=== PATIENT | male | born 1950 | race Caucasian/White ===

== ENCOUNTER 2020-08-24 13:40 | Outpatient (RCR) | payer OTHER, SELFPAY ==
[2020-08-18 08:48] LABS: Abs Immature Grans 0.05 10^3/uL (0.0-0.06); Absolute Eosinophil Count 0.24 10^3/uL (0.0-0.7); Absolute Lymphocyte Count 2.45 10^3/uL (1.2-3.4); Absolute Monocyte Count 0.68 10^3/uL (0.1-0.8); Absolute Neutrophil Count 3.87 10^3/uL (1.2-6.7); Basophils % 1.4; Eosinophils % 3.2; HCT 41.2 % (40.0-50.0); HGB 14.2 g/dL (13.5-17.5); Immature Grans % 0.7; Lymphocytes % 33.2; MCH 30.7 pg (27.0-33.0); MCHC 34.5 % (32.0-36.0); MPV 11.6 fL (8.0-11.0); Monocytes % 9.2; Neutrophils % 52.3; Nucleated RBC 0 %; Platelet Count 231 10^3/uL (130-400); RBC 4.63 10^6/uL (4.36-5.78); RDW 15.7 % (11.8-14.1); RDW-SD 51.3 fL; WBC 7.39 10^3/uL (4.4-10.8)
[2020-08-18] MEDS: Normal Saline Flush 10 ML SYR IVP (08:51)
[2020-08-18 09:02] LABS: ALT 52 U/L (16-63); AST 23 U/L (15-37); Albumin 3.8 g/dL (3.4-5.0); Alkaline Phosphatase 219 U/L (46-116); Anion Gap 9.8 mmol/L (3-11); BUN 17 mg/dL (7-18); Bilirubin, Total 2.8 mg/dL (0.2-1.0); CO2 26.2 mmol/L (21.0-32.0); CREATININE 0.9 mg/dL (0.70-1.30); Calcium 9.7 mg/dL (8.5-10.1); Chloride 99 mmol/L (98-107); Glucose 337 mg/dL (74-106); Potassium 4.3 mmol/L (3.5-5.1); Sodium 135 mmol/L (136-145); Total Protein 7.6 g/dL (6.4-8.2)
[2020-08-21 11:26] LABS: CA 19-9 131 U/mL (<35)
[2020-08-24] MEDS: Normal Saline Flush 10 ML SYR IVP (14:04)
[2020-08-24] MEDS: Heparin 500 UNITS/5 ML SYRINGE IV (14:05)
[2020-08-24 14:19] LABS: Abs Immature Grans 0.04 10^3/uL (0.0-0.06); Absolute Basophil Count 0.06 10^3/uL (0.0-0.2); Absolute Eosinophil Count 0.23 10^3/uL (0.0-0.7); Absolute Lymphocyte Count 2.09 10^3/uL (1.2-3.4); Absolute Monocyte Count 0.66 10^3/uL (0.1-0.8); Absolute Neutrophil Count 3.42 10^3/uL (1.2-6.7); Basophils % 0.9; Eosinophils % 3.5; HCT 40.2 % (40.0-50.0); HGB 13.7 g/dL (13.5-17.5); Immature Grans % 0.6; Lymphocytes % 32.2; MCHC 34.1 % (32.0-36.0); MPV 11.6 fL (8.0-11.0); Monocytes % 10.2; Neutrophils % 52.6; Nucleated RBC 0 %; Platelet Count 188 10^3/uL (130-400); RBC 4.42 10^6/uL (4.36-5.78); RDW 15.7 % (11.8-14.1); RDW-SD 52.4 fL
[2020-08-24 14:31] LABS: ALT 41 U/L (16-63); AST 23 U/L (15-37); Albumin 3.5 g/dL (3.4-5.0); Alkaline Phosphatase 240 U/L (46-116); Anion Gap 6.9 mmol/L (3-11); BUN 25 mg/dL (7-18); Bilirubin, Total 1.8 mg/dL (0.2-1.0); CO2 26.1 mmol/L (21.0-32.0); CREATININE 1.1 mg/dL (0.70-1.30); Calcium 9.1 mg/dL (8.5-10.1); Chloride 102 mmol/L (98-107); Glucose 468 mg/dL (74-106); Potassium 4.3 mmol/L (3.5-5.1); Sodium 135 mmol/L (136-145); Total Protein 7.1 g/dL (6.4-8.2)
[2020-08-25 11:30] LABS: CA 19-9 114 U/mL (<35)
== END 2020-09-01 23:59 | disposition home or self-care (01) ==
LOC: INF 13:40
PROVIDERS: PCP Emergency Medicine; Visit Provider Internal Medicine Hematology & Oncology
DX: C25.0 Malignant neoplasm of head of pancreas (principal)
CPT/HCPCS: 36591; 80053; 85025; 86301

== ENCOUNTER 2020-09-29 04:22 | Outpatient (RCR) | payer OTHER, SELFPAY ==
[2020-09-05] MEDS: Normal Saline Flush 10 ML SYR IVP (08:36)
[2020-09-05 08:47] LABS: Abs Immature Grans 0.02 10^3/uL (0.0-0.06); Absolute Basophil Count 0.08 10^3/uL (0.0-0.2); Absolute Eosinophil Count 0.25 10^3/uL (0.0-0.7); Absolute Lymphocyte Count 2.02 10^3/uL (1.2-3.4); Absolute Monocyte Count 0.58 10^3/uL (0.1-0.8); Absolute Neutrophil Count 3.27 10^3/uL (1.2-6.7); Basophils % 1.3; HCT 44.2 % (40.0-50.0); HGB 15.3 g/dL (13.5-17.5); Immature Grans % 0.3; Lymphocytes % 32.5; MCH 31.4 pg (27.0-33.0); MCHC 34.6 % (32.0-36.0); MCV 90.8 fL (80-95); MPV 10.9 fL (8.0-11.0); Monocytes % 9.3; Neutrophils % 52.6; Nucleated RBC 0 %; Platelet Count 180 10^3/uL (130-400); RBC 4.87 10^6/uL (4.36-5.78); RDW 14.2 % (11.8-14.1); RDW-SD 47.8 fL; WBC 6.22 10^3/uL (4.4-10.8)
[2020-09-05 09:01] LABS: ALT 45 U/L (16-63); AST 23 U/L (15-37); Albumin 3.7 g/dL (3.4-5.0); Alkaline Phosphatase 162 U/L (46-116); BUN 13 mg/dL (7-18); Bilirubin, Total 1.4 mg/dL (0.2-1.0); CREATININE 0.8 mg/dL (0.70-1.30); Chloride 106 mmol/L (98-107); Glucose 187 mg/dL (74-106); Sodium 140 mmol/L (136-145); Total Protein 7.4 g/dL (6.4-8.2)
[2020-09-06 09:31] LABS: CA 19-9 63 U/mL (<35)
[2020-09-15] MEDS: Heparin 500 UNITS/5 ML SYRINGE IV (14:57)
[2020-09-15] MEDS: Normal Saline Flush 10 ML SYR IVP (14:57)
[2020-09-15 15:18] LABS: Abs Immature Grans 0.01 10^3/uL (0.0-0.06); Absolute Basophil Count 0.02 10^3/uL (0.0-0.2); Absolute Eosinophil Count 0.54 10^3/uL (0.0-0.7); Absolute Lymphocyte Count 2.74 10^3/uL (1.2-3.4); Absolute Monocyte Count 0.53 10^3/uL (0.1-0.8); Absolute Neutrophil Count 2.83 10^3/uL (1.2-6.7); Basophils % 0.3; Eosinophils % 8.1; HCT 41.5 % (40.0-50.0); HGB 14.7 g/dL (13.5-17.5); Immature Grans % 0.1; Lymphocytes % 41.1; MCH 31.6 pg (27.0-33.0); MCHC 35.4 % (32.0-36.0); MCV 89.2 fL (80-95); MPV 10.5 fL (8.0-11.0); Monocytes % 7.9; Neutrophils % 42.5; Nucleated RBC 0 %; Platelet Count 202 10^3/uL (130-400); RBC 4.65 10^6/uL (4.36-5.78); RDW 13.3 % (11.8-14.1); RDW-SD 43.4 fL; WBC 6.67 10^3/uL (4.4-10.8)
[2020-09-15 15:31] LABS: ALT 43 U/L (16-63); AST 21 U/L (15-37); Albumin 3.5 g/dL (3.4-5.0); Alkaline Phosphatase 148 U/L (46-116); Anion Gap 8.8 mmol/L (3-11); BUN 14 mg/dL (7-18); Bilirubin, Total 0.8 mg/dL (0.2-1.0); CO2 26.2 mmol/L (21.0-32.0); CREATININE 0.8 mg/dL (0.70-1.30); Calcium 8.8 mg/dL (8.5-10.1); Chloride 104 mmol/L (98-107); Glucose 160 mg/dL (74-106); Potassium 3.9 mmol/L (3.5-5.1); Sodium 139 mmol/L (136-145); Total Protein 6.8 g/dL (6.4-8.2)
[2020-09-18 11:30] LABS: CA 19-9 56 U/mL (<35)
[2020-09-29] MEDS: Normal Saline Flush 10 ML SYR IVP (08:36)
[2020-09-29] MEDS: Heparin 500 UNITS/5 ML SYRINGE IV (08:37)
[2020-09-29 08:49] LABS: ALT 57 U/L (16-63); AST 25 U/L (15-37); Albumin 3.6 g/dL (3.4-5.0); Alkaline Phosphatase 142 U/L (46-116); BUN 15 mg/dL (7-18); Bilirubin, Total 0.7 mg/dL (0.2-1.0); CREATININE 0.8 mg/dL (0.70-1.30); Calcium 9.1 mg/dL (8.5-10.1); Chloride 104 mmol/L (98-107); Glucose 184 mg/dL (74-106); Potassium 4.1 mmol/L (3.5-5.1); Sodium 140 mmol/L (136-145); Total Protein 7.1 g/dL (6.4-8.2)
[2020-09-29 08:58] LABS: Abs Immature Grans 0.02 10^3/uL (0.0-0.06); Absolute Eosinophil Count 0.36 10^3/uL (0.0-0.7); Absolute Lymphocyte Count 2.21 10^3/uL (1.2-3.4); Absolute Monocyte Count 0.67 10^3/uL (0.1-0.8); Basophils % 1.7; Eosinophils % 6.1; HCT 42.8 % (40.0-50.0); HGB 14.9 g/dL (13.5-17.5); Immature Grans % 0.3; Lymphocytes % 37.7; MCH 31.1 pg (27.0-33.0); MCHC 34.8 % (32.0-36.0); MCV 89.4 fL (80-95); MPV 10.6 fL (8.0-11.0); Monocytes % 11.4; Neutrophils % 42.8; Nucleated RBC 0 %; Platelet Count 176 10^3/uL (130-400); RBC 4.79 10^6/uL (4.36-5.78); RDW 12.8 % (11.8-14.1); RDW-SD 41.6 fL; WBC 5.86 10^3/uL (4.4-10.8)
[2020-10-02 09:50] LABS: CA 19-9 51 U/mL (<35)
== END 2020-10-02 23:59 | disposition home or self-care (01) ==
LOC: INF 04:22
PROVIDERS: PCP Emergency Medicine; Visit Provider Internal Medicine Hematology & Oncology
DX: C25.0 Malignant neoplasm of head of pancreas (principal); Z45.2 Encounter for adjustment and management of vascular access device
CPT/HCPCS: 36591; 80053; 85025; 86301

== ENCOUNTER → 2020-10-24 01:46 | Outpatient (CLI) | payer OTHER, SELFPAY ==
--- NOTE | 2020-10-24 | DI.CT_ITS ---
Exam(s) CT CHEST/ABD/PEL W EXAM: CT CHEST/ABD/PEL W CLINICAL HISTORY: PANCREAS CA,C25.0,ASSESS TREATMENT RESPONSE TECHNIQUE: CT examination of the chest, abdomen, and pelvis was performed utilizing intravenous inf usion of 100 cc of Omnipaque 350 with biphasic hepatic imaging. Oral contrast was also administered. COMPARISON: CT CT ABD/PELVIS W CONTRAST from 07/28/2020 FINDINGS: Lungs are clear. No pleural effusion. No pleural based mass. No mediastinal or hilar adenopathy. No axillary or supraclavicular adenopathy. Tracheobronchial august e appears intact. No evidence of pulmonary embolic disease. Unremarkable appearance of thoracic aorta and major branch vessels. There are 2 tiny focal hepatic low attenuation lesions, too small to characterize, in the right hepat ic lobe inferolaterally. These measure respectively 7 x 5 millimeters in diameter and 10 x 4 millime ters in diameter. These appears to have been present on prior CT of July 28. These are grossly u nchanged from that time. Spleen is unremarkable in appearance. There is been interval placement of a biliary stent since the prior CT examination. Note is again ma de of mild prominence of the pancreatic head which has a mildly heterogeneous appearance. There is i ncreased dilatation of the pancreatic duct since the prior examination, the duct now measures about 6 millimeters in diameter. Common hepatic duct appears grossly of normal diameter at about 6 millimet ers. Slight indistinct borders of the pancreatic head are noted, no gross peripancreatic adenopathy or flu id collection seen. Mesenteric lymph nodes appear grossly within normal limits in diameter, para-aor tic and paracaval nodes grossly unremarkable. Adrenals appear normal. Kidneys are unremarkable in appearance with no renal mass, hydronephrosis, or nephrolithiasis. Abdominal aorta and major visceral branches appear intact. No focal bowel pathology. Appendix is normal. No evidence of diverticulitis. No abdominal or pelvic adenopathy. No significant abdominal wall hernia. No focal bony lesion identified on scanning of the chest, abdomen, and pelvis. IMPRESSION: No gross interval change in appearance of subtle pancreatic head mass since prior examination of . Mass has indistinct margins, no gross regional or distant metastasis seen. Tiny indeterminate right hepatic lobe lesions noted, metastasis is not excluded. There is interval placement of a biliary stent. Pancreatic duct shows increased dilatation since the prior examination. RADIATION DOSE DELIVERED: 1,827.38mGy.cm Total DLP 1,827.38mGy.cm Total DLP RADIATION OPTIMIZATION: All CT scans at this facility use at least one of these dose optimization te chniques: automated exposure control; mA and/or kV adjustment per patient size (includes targeted exa ms where dose is matched to clinical indication); or iterative reconstruction.
[2020-10-24] MEDS: Breeza Beverage 473 ML BTL PO ×2 (09:12→09:13)
[2020-10-24] MEDS: Omnipaque 350 MG/ML 100 ML BTL IJ (11:04)
[2020-10-24] MEDS: Normal Saline - Diluent 50 ML VIAL IV (11:05)
[2020-10-24] MEDS: Normal Saline Flush 10 ML SYR IVP (11:06)
== END ==
PROVIDERS: PCP Emergency Medicine; Visit Provider Nurse Practitioner Family
DX: C25.0 Malignant neoplasm of head of pancreas (principal); K76.9 Liver disease, unspecified; K86.89 Other specified diseases of pancreas; Z96.89 Presence of other specified functional implants
CPT/HCPCS: 74177; 71260; J3490

== ENCOUNTER 2020-10-27 05:03 | Outpatient (RCR) | payer OTHER, SELFPAY ==
[2020-10-13] MEDS: Normal Saline Flush 10 ML SYR IVP (09:05)
[2020-10-13] MEDS: Heparin 500 UNITS/5 ML SYRINGE IV (09:05)
[2020-10-13 09:21] LABS: Abs Immature Grans 0.02 10^3/uL (0.0-0.06); Absolute Basophil Count 0.05 10^3/uL (0.0-0.2); Absolute Eosinophil Count 0.23 10^3/uL (0.0-0.7); Absolute Lymphocyte Count 2.03 10^3/uL (1.2-3.4); Absolute Monocyte Count 0.53 10^3/uL (0.1-0.8); Absolute Neutrophil Count 2.26 10^3/uL (1.2-6.7); Eosinophils % 4.5; HCT 42.3 % (40.0-50.0); HGB 14.7 g/dL (13.5-17.5); Immature Grans % 0.4; Lymphocytes % 39.6; MCH 31.5 pg (27.0-33.0); MCHC 34.8 % (32.0-36.0); MCV 90.6 fL (80-95); MPV 10.9 fL (8.0-11.0); Monocytes % 10.4; Neutrophils % 44.1; Nucleated RBC 0 %; Platelet Count 137 10^3/uL (130-400); RBC 4.67 10^6/uL (4.36-5.78); RDW 13.2 % (11.8-14.1); RDW-SD 42.7 fL; WBC 5.12 10^3/uL (4.4-10.8)
[2020-10-13 09:50] LABS: ALT 69 U/L (16-63); AST 30 U/L (15-37); Albumin 3.5 g/dL (3.4-5.0); Alkaline Phosphatase 215 U/L (46-116); Anion Gap 8.3 mmol/L (3-11); BUN 20 mg/dL (7-18); Bilirubin, Total 0.4 mg/dL (0.2-1.0); CO2 25.7 mmol/L (21.0-32.0); CREATININE 0.7 mg/dL (0.70-1.30); Chloride 104 mmol/L (98-107); Glucose 229 mg/dL (74-106); Potassium 4.2 mmol/L (3.5-5.1); Sodium 138 mmol/L (136-145)
[2020-10-16 11:12] LABS: CA 19-9 66 U/mL (<35)
[2020-10-24] MEDS: Normal Saline Flush 10 ML SYR IVP (09:10)
[2020-10-24] MEDS: Heparin 500 UNITS/5 ML SYRINGE IV (09:10)
[2020-10-27] MEDS: Normal Saline Flush 10 ML SYR IVP (10:35)
[2020-10-27] MEDS: Heparin 500 UNITS/5 ML SYRINGE IV (10:35)
[2020-10-27 10:41] LABS: Abs Immature Grans 0.03 10^3/uL (0.0-0.06); Absolute Basophil Count 0.04 10^3/uL (0.0-0.2); Absolute Eosinophil Count 0.15 10^3/uL (0.0-0.7); Absolute Lymphocyte Count 2.14 10^3/uL (1.2-3.4); Absolute Monocyte Count 0.55 10^3/uL (0.1-0.8); Absolute Neutrophil Count 1.28 10^3/uL (1.2-6.7); Eosinophils % 3.6; HCT 42.7 % (40.0-50.0); HGB 14.9 g/dL (13.5-17.5); Immature Grans % 0.7; Lymphocytes % 51.1; MCH 31.1 pg (27.0-33.0); MCHC 34.9 % (32.0-36.0); MCV 89.1 fL (80-95); MPV 10.9 fL (8.0-11.0); Monocytes % 13.1; Neutrophils % 30.5; Nucleated RBC 0 %; Platelet Count 130 10^3/uL (130-400); RBC 4.79 10^6/uL (4.36-5.78); RDW 13.7 % (11.8-14.1); RDW-SD 44.1 fL; WBC 4.19 10^3/uL (4.4-10.8)
[2020-10-27 10:52] LABS: ALT 75 U/L (16-63); AST 32 U/L (15-37); Albumin 3.7 g/dL (3.4-5.0); Alkaline Phosphatase 184 U/L (46-116); Anion Gap 8.8 mmol/L (3-11); BUN 19 mg/dL (7-18); Bilirubin, Total 0.5 mg/dL (0.2-1.0); CO2 26.2 mmol/L (21.0-32.0); CREATININE 0.8 mg/dL (0.70-1.30); Calcium 9.1 mg/dL (8.5-10.1); Chloride 102 mmol/L (98-107); Glucose 264 mg/dL (74-106); Potassium 4.2 mmol/L (3.5-5.1); Sodium 137 mmol/L (136-145); Total Protein 7.2 g/dL (6.4-8.2)
[2020-10-30 09:44] LABS: CA 19-9 83 U/mL (<35)
[2020-10-31 09:25] LABS: Abs Immature Grans 0.02 10^3/uL (0.0-0.06); Absolute Basophil Count 0.05 10^3/uL (0.0-0.2); Absolute Eosinophil Count 0.11 10^3/uL (0.0-0.7); Absolute Lymphocyte Count 1.57 10^3/uL (1.2-3.4); Absolute Neutrophil Count 2.07 10^3/uL (1.2-6.7); Basophils % 1.1; Eosinophils % 2.4; Immature Grans % 0.4; Lymphocytes % 34.7; MCH 31.7 pg (27.0-33.0); MCV 90.7 fL (80-95); MPV 11.3 fL (8.0-11.0); Monocytes % 15.5; Neutrophils % 45.9; Nucleated RBC 0 %; Platelet Count 109 10^3/uL (130-400); RBC 4.41 10^6/uL (4.36-5.78); RDW 14.1 % (11.8-14.1); RDW-SD 46.5 fL; WBC 4.52 10^3/uL (4.4-10.8)
== END 2020-11-01 23:59 | disposition home or self-care (01) ==
LOC: INF 05:03
PROVIDERS: PCP Emergency Medicine; Visit Provider Internal Medicine Hematology & Oncology
DX: C25.0 Malignant neoplasm of head of pancreas (principal); Z45.2 Encounter for adjustment and management of vascular access device
CPT/HCPCS: 36591; 80053; 96523; 85025; 86301

== ENCOUNTER 2020-11-13 02:53 | Outpatient (RCR) | payer OTHER, SELFPAY ==
[2020-11-13] MEDS: Normal Saline Flush 10 ML SYR IVP (09:22)
[2020-11-13] MEDS: Heparin 500 UNITS/5 ML SYRINGE IV (09:22)
[2020-11-13 09:37] LABS: Abs Immature Grans 0.03 10^3/uL (0.0-0.06); Absolute Basophil Count 0.06 10^3/uL (0.0-0.2); Absolute Eosinophil Count 0.16 10^3/uL (0.0-0.7); Absolute Lymphocyte Count 2.05 10^3/uL (1.2-3.4); Absolute Monocyte Count 0.69 10^3/uL (0.1-0.8); Absolute Neutrophil Count 2.18 10^3/uL (1.2-6.7); Basophils % 1.2; Eosinophils % 3.1; HCT 43.6 % (40.0-50.0); HGB 15.1 g/dL (13.5-17.5); Immature Grans % 0.6; Lymphocytes % 39.7; MCH 31.6 pg (27.0-33.0); MCHC 34.6 % (32.0-36.0); MCV 91.2 fL (80-95); MPV 11.5 fL (8.0-11.0); Monocytes % 13.3; Neutrophils % 42.1; Nucleated RBC 0 %; Platelet Count 131 10^3/uL (130-400); RBC 4.78 10^6/uL (4.36-5.78); RDW 14.4 % (11.8-14.1); RDW-SD 48.4 fL; WBC 5.17 10^3/uL (4.4-10.8)
[2020-11-13 09:53] LABS: ALT 304 U/L (16-63); AST 55 U/L (15-37); Albumin 3.7 g/dL (3.4-5.0); Alkaline Phosphatase 240 U/L (46-116); Anion Gap 11.3 mmol/L (3-11); BUN 14 mg/dL (7-18); Bilirubin, Total 0.5 mg/dL (0.2-1.0); CO2 25.7 mmol/L (21.0-32.0); CREATININE 0.9 mg/dL (0.70-1.30); Calcium 9.4 mg/dL (8.5-10.1); Chloride 104 mmol/L (98-107); Glucose 147 mg/dL (74-106); Potassium 4.1 mmol/L (3.5-5.1); Sodium 141 mmol/L (136-145); Total Protein 7.5 g/dL (6.4-8.2)
[2020-11-15 09:24] LABS: CA 19-9 84 U/mL (<35)
== END 2020-12-02 23:59 | disposition home or self-care (01) ==
LOC: INF 02:53
PROVIDERS: PCP Emergency Medicine; Visit Provider Internal Medicine Hematology & Oncology
DX: C25.0 Malignant neoplasm of head of pancreas (principal); Z45.2 Encounter for adjustment and management of vascular access device
CPT/HCPCS: 36591; 80053; 85025; 86301

== ENCOUNTER 2020-11-30 03:54 | Outpatient (RCR) | payer OTHER, SELFPAY ==
[2020-11-24 07:29] LABS: Abs Immature Grans 0.11 10^3/uL (0.0-0.06); Absolute Basophil Count 0.05 10^3/uL (0.0-0.2); Absolute Eosinophil Count 0.13 10^3/uL (0.0-0.7); Absolute Lymphocyte Count 2.19 10^3/uL (1.2-3.4); Absolute Monocyte Count 0.64 10^3/uL (0.1-0.8); Absolute Neutrophil Count 1.92 10^3/uL (1.2-6.7); Eosinophils % 2.6; HCT 40.8 % (40.0-50.0); HGB 13.8 g/dL (13.5-17.5); Immature Grans % 2.2; Lymphocytes % 43.5; MCH 31.7 pg (27.0-33.0); MCHC 33.8 % (32.0-36.0); MCV 93.6 fL (80-95); MPV 10.6 fL (8.0-11.0); Monocytes % 12.7; Nucleated RBC 0 %; Platelet Count 193 10^3/uL (130-400); RBC 4.36 10^6/uL (4.36-5.78); RDW 15.5 % (11.8-14.1); RDW-SD 53.4 fL; WBC 5.04 10^3/uL (4.4-10.8)
[2020-11-24 07:42] LABS: ALT 149 U/L (16-63); AST 40 U/L (15-37); Albumin 3.1 g/dL (3.4-5.0); Alkaline Phosphatase 299 U/L (46-116); Anion Gap 8.1 mmol/L (3-11); BUN 17 mg/dL (7-18); Bilirubin, Total 1.3 mg/dL (0.2-1.0); CO2 26.9 mmol/L (21.0-32.0); CREATININE 0.9 mg/dL (0.70-1.30); Calcium 8.5 mg/dL (8.5-10.1); Chloride 105 mmol/L (98-107); Glucose 181 mg/dL (74-106); Potassium 3.7 mmol/L (3.5-5.1); Sodium 140 mmol/L (136-145)
[2020-11-24] MEDS: Normal Saline Flush 10 ML SYR IVP (07:54)
[2020-11-24] MEDS: Heparin 500 UNITS/5 ML SYRINGE IV (07:54)
[2020-11-27 10:53] LABS: CA 19-9 57 U/mL (<35)
[2020-11-28] MEDS: Normal Saline Flush 10 ML SYR IVP (08:51)
[2020-11-28 08:58] LABS: Abs Immature Grans 0.09 10^3/uL (0.0-0.06); Absolute Basophil Count 0.05 10^3/uL (0.0-0.2); Absolute Eosinophil Count 0.07 10^3/uL (0.0-0.7); Absolute Lymphocyte Count 1.94 10^3/uL (1.2-3.4); Absolute Monocyte Count 0.79 10^3/uL (0.1-0.8); Absolute Neutrophil Count 2.03 10^3/uL (1.2-6.7); Eosinophils % 1.4; HCT 41.5 % (40.0-50.0); HGB 14.1 g/dL (13.5-17.5); Immature Grans % 1.8; MCH 31.5 pg (27.0-33.0); MCV 92.8 fL (80-95); MPV 11.5 fL (8.0-11.0); Monocytes % 15.9; Neutrophils % 40.9; Nucleated RBC 0 %; Platelet Count 202 10^3/uL (130-400); RBC 4.47 10^6/uL (4.36-5.78); RDW 15.1 % (11.8-14.1); WBC 4.97 10^3/uL (4.4-10.8)
[2020-11-28 10:03] LABS: ALT 89 U/L (16-63); AST 35 U/L (15-37); Albumin 3.4 g/dL (3.4-5.0); Alkaline Phosphatase 247 U/L (46-116); Anion Gap 10.3 mmol/L (3-11); BUN 21 mg/dL (7-18); CO2 25.7 mmol/L (21.0-32.0); CREATININE 0.9 mg/dL (0.70-1.30); Calcium 9.2 mg/dL (8.5-10.1); Chloride 103 mmol/L (98-107); Glucose 206 mg/dL (74-106); Potassium 4.2 mmol/L (3.5-5.1); Sodium 139 mmol/L (136-145); Total Protein 7.3 g/dL (6.4-8.2)
== END 2020-12-02 23:59 | disposition home or self-care (01) ==
LOC: INF 03:54
PROVIDERS: PCP Emergency Medicine; Visit Provider Internal Medicine Hematology & Oncology
DX: C25.0 Malignant neoplasm of head of pancreas (principal); Z45.2 Encounter for adjustment and management of vascular access device
CPT/HCPCS: 36591; 80053; 85025; 86301

== ENCOUNTER 2020-12-12 13:50 | Outpatient (REF) | payer OTHER, SELFPAY ==
[2020-12-12 09:39] LABS: Abs Immature Grans 0.02 10^3/uL (0.0-0.06); Absolute Basophil Count 0.05 10^3/uL (0.0-0.2); Absolute Eosinophil Count 0.13 10^3/uL (0.0-0.7); Absolute Lymphocyte Count 1.88 10^3/uL (1.2-3.4); Absolute Monocyte Count 0.84 10^3/uL (0.1-0.8); Absolute Neutrophil Count 2.02 10^3/uL (1.2-6.7); Eosinophils % 2.6; HCT 39.9 % (40.0-50.0); HGB 13.8 g/dL (13.5-17.5); Immature Grans % 0.4; Lymphocytes % 38.1; MCH 31.6 pg (27.0-33.0); MCHC 34.6 % (32.0-36.0); MCV 91.3 fL (80-95); MPV 11.6 fL (8.0-11.0); Neutrophils % 40.9; Nucleated RBC 0 %; RBC 4.37 10^6/uL (4.36-5.78); RDW 14.6 % (11.8-14.1); RDW-SD 48.7 fL; WBC 4.94 10^3/uL (4.4-10.8)
[2020-12-12 09:57] LABS: Diff Comment Diff Reviewed; Platelet Count 82 10^3/uL (130-400); RBC Morphology Normal
== END 2020-12-12 13:51 | disposition home or self-care (01) ==
LOC: LBN 13:50
PROVIDERS: PCP Emergency Medicine; Visit Provider Internal Medicine Hematology & Oncology
DX: C25.0 Malignant neoplasm of head of pancreas (principal)
CPT/HCPCS: 85025

== ENCOUNTER 2020-12-18 02:31 | Outpatient (RCR) | payer OTHER, SELFPAY ==
[2020-12-08 07:46] LABS: Abs Immature Grans 0.03 10^3/uL (0.0-0.06); Absolute Basophil Count 0.04 10^3/uL (0.0-0.2); Absolute Eosinophil Count 0.14 10^3/uL (0.0-0.7); Absolute Lymphocyte Count 2.21 10^3/uL (1.2-3.4); Absolute Monocyte Count 0.73 10^3/uL (0.1-0.8); Basophils % 0.8; Eosinophils % 2.9; HCT 39.8 % (40.0-50.0); HGB 14.2 g/dL (13.5-17.5); Immature Grans % 0.6; Lymphocytes % 46.5; MCH 31.8 pg (27.0-33.0); MCHC 35.7 % (32.0-36.0); MPV 11.7 fL (8.0-11.0); Monocytes % 15.4; Neutrophils % 33.8; Nucleated RBC 0 %; Platelet Count 89 10^3/uL (130-400); RBC 4.47 10^6/uL (4.36-5.78); RDW 14.3 % (11.8-14.1); RDW-SD 45.8 fL; WBC 4.75 10^3/uL (4.4-10.8)
[2020-12-08 07:59] LABS: ALT 60 U/L (16-63); AST 37 U/L (15-37); Albumin 3.5 g/dL (3.4-5.0); Alkaline Phosphatase 242 U/L (46-116); Anion Gap 8.3 mmol/L (3-11); BUN 17 mg/dL (7-18); Bilirubin, Total 0.9 mg/dL (0.2-1.0); CO2 25.7 mmol/L (21.0-32.0); CREATININE 0.8 mg/dL (0.70-1.30); Calcium 9.4 mg/dL (8.5-10.1); Chloride 105 mmol/L (98-107); Glucose 100 mg/dL (74-106); Potassium 3.9 mmol/L (3.5-5.1); Sodium 139 mmol/L (136-145); Total Protein 7.3 g/dL (6.4-8.2)
[2020-12-08] MEDS: Normal Saline Flush 10 ML SYR IVP (07:59)
[2020-12-08] MEDS: Heparin 500 UNITS/5 ML SYRINGE IV (08:00)
[2020-12-08 08:09] LABS: Diff Comment Diff Reviewed; RBC Morphology Normal
[2020-12-11 10:10] LABS: CA 19-9 67 U/mL (<35)
[2020-12-18] MEDS: Normal Saline Flush 10 ML SYR IVP (12:55)
[2020-12-18] MEDS: Heparin 500 UNITS/5 ML SYRINGE IV (12:55)
[2020-12-18 13:10] LABS: Abs Immature Grans 0.04 10^3/uL (0.0-0.06); Absolute Basophil Count 0.04 10^3/uL (0.0-0.2); Absolute Eosinophil Count 0.16 10^3/uL (0.0-0.7); Absolute Lymphocyte Count 2.42 10^3/uL (1.2-3.4); Absolute Monocyte Count 0.68 10^3/uL (0.1-0.8); Absolute Neutrophil Count 1.42 10^3/uL (1.2-6.7); Basophils % 0.8; Eosinophils % 3.4; HCT 41.4 % (40.0-50.0); HGB 14.3 g/dL (13.5-17.5); Immature Grans % 0.8; Lymphocytes % 50.8; MCH 32.1 pg (27.0-33.0); MCHC 34.5 % (32.0-36.0); Monocytes % 14.3; Neutrophils % 29.9; Nucleated RBC 0 %; Platelet Count 130 10^3/uL (130-400); RBC 4.45 10^6/uL (4.36-5.78); RDW 14.7 % (11.8-14.1); RDW-SD 51.1 fL; WBC 4.76 10^3/uL (4.4-10.8)
[2020-12-18 13:22] LABS: ALT 69 U/L (16-63); AST 42 U/L (15-37); Albumin 3.6 g/dL (3.4-5.0); Alkaline Phosphatase 201 U/L (46-116); Anion Gap 8.6 mmol/L (3-11); BUN 18 mg/dL (7-18); Bilirubin, Total 0.8 mg/dL (0.2-1.0); CO2 27.4 mmol/L (21.0-32.0); CREATININE 0.8 mg/dL (0.70-1.30); Calcium 9.1 mg/dL (8.5-10.1); Chloride 104 mmol/L (98-107); Glucose 198 mg/dL (74-106); Potassium 4.4 mmol/L (3.5-5.1); Sodium 140 mmol/L (136-145); Total Protein 7.4 g/dL (6.4-8.2)
== END 2021-01-02 23:59 | disposition home or self-care (01) ==
LOC: INF 02:31
PROVIDERS: PCP Emergency Medicine; Visit Provider Internal Medicine Hematology & Oncology
DX: C25.0 Malignant neoplasm of head of pancreas (principal); Z45.2 Encounter for adjustment and management of vascular access device
CPT/HCPCS: 36591; 80053; 85025; 86301

== ENCOUNTER 2021-01-26 05:14 | Outpatient (RCR) | payer OTHER, SELFPAY ==
[2021-01-05] MEDS: Heparin 500 UNITS/5 ML SYRINGE IV (09:15)
[2021-01-05] MEDS: Normal Saline Flush 10 ML SYR IVP (09:16)
[2021-01-05 09:29] LABS: Abs Immature Grans 0.02 10^3/uL (0.0-0.06); Absolute Basophil Count 0.04 10^3/uL (0.0-0.2); Absolute Eosinophil Count 0.14 10^3/uL (0.0-0.7); Absolute Lymphocyte Count 1.82 10^3/uL (1.2-3.4); Absolute Neutrophil Count 1.25 10^3/uL (1.2-6.7); Eosinophils % 3.5; HCT 40.5 % (40.0-50.0); Immature Grans % 0.5; Lymphocytes % 45.8; MCH 32.6 pg (27.0-33.0); MCHC 34.6 % (32.0-36.0); MCV 94.4 fL (80-95); MPV 11.1 fL (8.0-11.0); Monocytes % 17.6; Neutrophils % 31.6; Nucleated RBC 0 %; Platelet Count 113 10^3/uL (130-400); RBC 4.29 10^6/uL (4.36-5.78); RDW 13.7 % (11.8-14.1); RDW-SD 47.8 fL; WBC 3.97 10^3/uL (4.4-10.8)
[2021-01-05 09:41] LABS: ALT 81 U/L (16-63); AST 49 U/L (15-37); Albumin 3.7 g/dL (3.4-5.0); Alkaline Phosphatase 181 U/L (46-116); Anion Gap 10.6 mmol/L (3-11); BUN 15 mg/dL (7-18); Bilirubin, Total 0.7 mg/dL (0.2-1.0); CO2 25.4 mmol/L (21.0-32.0); CREATININE 0.8 mg/dL (0.70-1.30); Calcium 9.1 mg/dL (8.5-10.1); Chloride 106 mmol/L (98-107); Glucose 113 mg/dL (74-106); Sodium 142 mmol/L (136-145); Total Protein 7.4 g/dL (6.4-8.2)
[2021-01-08 10:02] LABS: CA 19-9 38 U/mL (<35)
[2021-01-12] MEDS: Heparin 500 UNITS/5 ML SYRINGE IV (12:55)
[2021-01-12] MEDS: Normal Saline Flush 10 ML SYR IVP (12:55)
[2021-01-12 13:04] LABS: Abs Immature Grans 0.02 10^3/uL (0.0-0.06); Absolute Basophil Count 0.06 10^3/uL (0.0-0.2); Absolute Eosinophil Count 0.19 10^3/uL (0.0-0.7); Absolute Lymphocyte Count 2.29 10^3/uL (1.2-3.4); Absolute Monocyte Count 0.71 10^3/uL (0.1-0.8); Absolute Neutrophil Count 1.72 10^3/uL (1.2-6.7); Basophils % 1.2; Eosinophils % 3.8; HCT 40.4 % (40.0-50.0); Immature Grans % 0.4; Lymphocytes % 45.9; MCH 32.9 pg (27.0-33.0); MCHC 34.7 % (32.0-36.0); MCV 95.1 fL (80-95); MPV 11.1 fL (8.0-11.0); Monocytes % 14.2; Neutrophils % 34.5; Nucleated RBC 0 %; Platelet Count 127 10^3/uL (130-400); RBC 4.25 10^6/uL (4.36-5.78); RDW 13.3 % (11.8-14.1); RDW-SD 46.9 fL; WBC 4.99 10^3/uL (4.4-10.8)
[2021-01-12 13:14] LABS: ALT 100 U/L (16-63); AST 61 U/L (15-37); Albumin 3.6 g/dL (3.4-5.0); Alkaline Phosphatase 203 U/L (46-116); BUN 16 mg/dL (7-18); Bilirubin, Total 0.6 mg/dL (0.2-1.0); CREATININE 0.8 mg/dL (0.70-1.30); Chloride 103 mmol/L (98-107); Glucose 253 mg/dL (74-106); Potassium 4.3 mmol/L (3.5-5.1); Sodium 138 mmol/L (136-145); Total Protein 7.2 g/dL (6.4-8.2)
[2021-01-15 11:47] LABS: CA 19-9 35 U/mL (<35)
[2021-01-19] MEDS: Normal Saline Flush 10 ML SYR IVP (12:19)
[2021-01-19] MEDS: Heparin 500 UNITS/5 ML SYRINGE IV (12:19)
[2021-01-19 12:56] LABS: Abs Immature Grans 0.01 10^3/uL (0.0-0.06); Absolute Basophil Count 0.03 10^3/uL (0.0-0.2); Absolute Eosinophil Count 0.17 10^3/uL (0.0-0.7); Absolute Lymphocyte Count 1.36 10^3/uL (1.2-3.4); Absolute Monocyte Count 0.67 10^3/uL (0.1-0.8); Absolute Neutrophil Count 2.23 10^3/uL (1.2-6.7); Basophils % 0.7; Eosinophils % 3.8; HCT 41.2 % (40.0-50.0); HGB 14.1 g/dL (13.5-17.5); Immature Grans % 0.2; Lymphocytes % 30.4; MCH 32.6 pg (27.0-33.0); MCHC 34.2 % (32.0-36.0); MCV 95.4 fL (80-95); MPV 10.9 fL (8.0-11.0); Neutrophils % 49.9; Nucleated RBC 0 %; Platelet Count 138 10^3/uL (130-400); RBC 4.32 10^6/uL (4.36-5.78); RDW 12.5 % (11.8-14.1); RDW-SD 43.5 fL; WBC 4.47 10^3/uL (4.4-10.8)
[2021-01-19 13:17] LABS: ALT 65 U/L (16-63); AST 38 U/L (15-37); Albumin 3.7 g/dL (3.4-5.0); Alkaline Phosphatase 155 U/L (46-116); Anion Gap 6.5 mmol/L (3-11); BUN 18 mg/dL (7-18); Bilirubin, Total 0.9 mg/dL (0.2-1.0); CO2 27.5 mmol/L (21.0-32.0); CREATININE 0.8 mg/dL (0.70-1.30); Calcium 9.1 mg/dL (8.5-10.1); Chloride 105 mmol/L (98-107); Glucose 175 mg/dL (74-106); Potassium 4.2 mmol/L (3.5-5.1); Sodium 139 mmol/L (136-145); Total Protein 7.2 g/dL (6.4-8.2)
[2021-01-26] MEDS: Heparin 500 UNITS/5 ML SYRINGE IV (11:40)
[2021-01-26] MEDS: Normal Saline Flush 10 ML SYR IVP (11:40)
[2021-01-26 11:54] LABS: Abs Immature Grans 0.02 10^3/uL (0.0-0.06); Absolute Basophil Count 0.03 10^3/uL (0.0-0.2); Absolute Lymphocyte Count 0.83 10^3/uL (1.2-3.4); Absolute Neutrophil Count 2.43 10^3/uL (1.2-6.7); Basophils % 0.7; Eosinophils % 4.9; HCT 40.3 % (40.0-50.0); HGB 13.9 g/dL (13.5-17.5); Immature Grans % 0.5; Lymphocytes % 20.2; MCH 32.4 pg (27.0-33.0); MCHC 34.5 % (32.0-36.0); MCV 93.9 fL (80-95); MPV 11.5 fL (8.0-11.0); Monocytes % 14.6; Neutrophils % 59.1; Nucleated RBC 0 %; Platelet Count 136 10^3/uL (130-400); RBC 4.29 10^6/uL (4.36-5.78); RDW 13.1 % (11.8-14.1); RDW-SD 44.8 fL; WBC 4.11 10^3/uL (4.4-10.8)
[2021-01-26 12:08] LABS: ALT 55 U/L (16-63); AST 33 U/L (15-37); Albumin 3.7 g/dL (3.4-5.0); Alkaline Phosphatase 164 U/L (46-116); BUN 17 mg/dL (7-18); Bilirubin, Total 0.7 mg/dL (0.2-1.0); CREATININE 0.9 mg/dL (0.70-1.30); Chloride 106 mmol/L (98-107); Glucose 139 mg/dL (74-106); Potassium 4.3 mmol/L (3.5-5.1); Sodium 141 mmol/L (136-145); Total Protein 7.4 g/dL (6.4-8.2)
== END 2021-02-01 23:59 | disposition home or self-care (01) ==
LOC: INF 05:14
PROVIDERS: PCP Emergency Medicine; Visit Provider Internal Medicine Hematology & Oncology
DX: C25.0 Malignant neoplasm of head of pancreas (principal); Z45.2 Encounter for adjustment and management of vascular access device
CPT/HCPCS: 36591; 80053; 85025; 86301

== ENCOUNTER 2021-02-16 00:50 | Outpatient (RCR) | payer OTHER, SELFPAY ==
[2021-02-02] MEDS: Normal Saline Flush 10 ML SYR IVP (11:36)
[2021-02-02] MEDS: Heparin 500 UNITS/5 ML SYRINGE IV (11:37)
[2021-02-02 11:50] LABS: Abs Immature Grans 0.01 10^3/uL (0.0-0.06); Absolute Basophil Count 0.03 10^3/uL (0.0-0.2); Absolute Eosinophil Count 0.19 10^3/uL (0.0-0.7); Absolute Lymphocyte Count 0.68 10^3/uL (1.2-3.4); Absolute Monocyte Count 0.62 10^3/uL (0.1-0.8); Absolute Neutrophil Count 2.61 10^3/uL (1.2-6.7); Basophils % 0.7; Eosinophils % 4.6; HCT 39.7 % (40.0-50.0); HGB 14.1 g/dL (13.5-17.5); Immature Grans % 0.2; Lymphocytes % 16.4; MCH 33.8 pg (27.0-33.0); MCHC 35.5 % (32.0-36.0); MCV 95.2 fL (80-95); MPV 11.4 fL (8.0-11.0); Neutrophils % 63.1; Nucleated RBC 0 %; Platelet Count 115 10^3/uL (130-400); RBC 4.17 10^6/uL (4.36-5.78); RDW 13.4 % (11.8-14.1); RDW-SD 46.5 fL; WBC 4.14 10^3/uL (4.4-10.8)
[2021-02-02 12:03] LABS: ALT 61 U/L (16-63); AST 33 U/L (15-37); Albumin 3.8 g/dL (3.4-5.0); Alkaline Phosphatase 211 U/L (46-116); Anion Gap 6.6 mmol/L (3-11); BUN 15 mg/dL (7-18); Bilirubin, Total 0.6 mg/dL (0.2-1.0); CO2 28.4 mmol/L (21.0-32.0); CREATININE 0.8 mg/dL (0.70-1.30); Calcium 8.9 mg/dL (8.5-10.1); Chloride 103 mmol/L (98-107); Glucose 281 mg/dL (74-106); Potassium 4.4 mmol/L (3.5-5.1); Sodium 138 mmol/L (136-145); Total Protein 7.5 g/dL (6.4-8.2)
[2021-02-09] MEDS: Normal Saline Flush 10 ML SYR IVP (11:14)
[2021-02-09] MEDS: Heparin 500 UNITS/5 ML SYRINGE IV (11:14)
[2021-02-09 11:27] LABS: Abs Immature Grans 0.03 10^3/uL (0.0-0.06); Absolute Basophil Count 0.03 10^3/uL (0.0-0.2); Absolute Eosinophil Count 0.23 10^3/uL (0.0-0.7); Absolute Lymphocyte Count 0.42 10^3/uL (1.2-3.4); Absolute Monocyte Count 0.65 10^3/uL (0.1-0.8); Absolute Neutrophil Count 2.74 10^3/uL (1.2-6.7); Basophils % 0.7; Eosinophils % 5.6; HCT 38.2 % (40.0-50.0); HGB 13.4 g/dL (13.5-17.5); Immature Grans % 0.7; Lymphocytes % 10.2; MCH 33.7 pg (27.0-33.0); MCHC 35.1 % (32.0-36.0); MPV 11.4 fL (8.0-11.0); Monocytes % 15.9; Neutrophils % 66.9; Nucleated RBC 0 %; Platelet Count 104 10^3/uL (130-400); RBC 3.98 10^6/uL (4.36-5.78)
[2021-02-09 11:45] LABS: ALT 63 U/L (16-63); AST 36 U/L (15-37); Albumin 3.7 g/dL (3.4-5.0); Alkaline Phosphatase 161 U/L (46-116); Anion Gap 5.9 mmol/L (3-11); BUN 13 mg/dL (7-18); Bilirubin, Total 0.6 mg/dL (0.2-1.0); CO2 27.1 mmol/L (21.0-32.0); CREATININE 0.7 mg/dL (0.70-1.30); Chloride 105 mmol/L (98-107); Glucose 259 mg/dL (74-106); Potassium 4.3 mmol/L (3.5-5.1); Sodium 138 mmol/L (136-145); Total Protein 7.1 g/dL (6.4-8.2)
[2021-02-16] MEDS: Normal Saline Flush 10 ML SYR IVP (11:34)
[2021-02-16] MEDS: Heparin 500 UNITS/5 ML SYRINGE IV (11:34)
[2021-02-16 11:42] LABS: Abs Immature Grans 0.02 10^3/uL (0.0-0.06); Absolute Basophil Count 0.03 10^3/uL (0.0-0.2); Absolute Lymphocyte Count 0.45 10^3/uL (1.2-3.4); Absolute Neutrophil Count 3.46 10^3/uL (1.2-6.7); Basophils % 0.6; Eosinophils % 4.1; HCT 38.4 % (40.0-50.0); HGB 13.7 g/dL (13.5-17.5); Immature Grans % 0.4; Lymphocytes % 9.3; MCH 33.9 pg (27.0-33.0); MCHC 35.7 % (32.0-36.0); MPV 10.8 fL (8.0-11.0); Monocytes % 14.4; Neutrophils % 71.2; Nucleated RBC 0 %; Platelet Count 117 10^3/uL (130-400); RBC 4.04 10^6/uL (4.36-5.78); RDW 14.7 % (11.8-14.1); RDW-SD 51.2 fL; WBC 4.86 10^3/uL (4.4-10.8)
[2021-02-16 11:53] LABS: ALT 59 U/L (16-63); AST 40 U/L (15-37); Albumin 3.8 g/dL (3.4-5.0); Alkaline Phosphatase 145 U/L (46-116); Anion Gap 7.4 mmol/L (3-11); BUN 15 mg/dL (7-18); Bilirubin, Total 0.7 mg/dL (0.2-1.0); CO2 27.6 mmol/L (21.0-32.0); CREATININE 0.8 mg/dL (0.70-1.30); Chloride 104 mmol/L (98-107); Glucose 167 mg/dL (74-106); Potassium 4.1 mmol/L (3.5-5.1); Sodium 139 mmol/L (136-145); Total Protein 7.4 g/dL (6.4-8.2)
== END 2021-03-04 23:59 | disposition home or self-care (01) ==
LOC: INF 00:50
PROVIDERS: PCP Emergency Medicine; Visit Provider Internal Medicine Hematology & Oncology
DX: C25.0 Malignant neoplasm of head of pancreas (principal); Z45.1 Encounter for adjustment and management of infusion pump
CPT/HCPCS: 36591; 80053; 85025

== ENCOUNTER 2021-03-14 00:51 | Outpatient (CLI) | payer MEDICARE, SELFPAY ==
[2021-03-14] MEDS: Omnipaque 350 MG/ML 50 ML BTL IJ (08:43)
--- NOTE | 2021-03-14 10:27 | DI.CT_ITS ---
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 TECHNIQUE: Imaging Protocol: Axial computed tomography images with coronal and sagittal reformatted images were created and reviewed CONTRAST MATERIAL: Intravenous: Omnipaque 350 Contrast volume:100 ml Oral: Yes COMPARISON: CT CT CHEST/ABD/PEL W from 10/24/[address] CHEST/ABD/PEL W from 10/24/2020 FINDINGS: CHEST: LUNGS: No infiltrates nor pleural effusions. No ominous pulmonary nodules seen. No findings in trac hea and mainstem bronchi.. MEDIASTINUM: There is no hilar nor mediastinal adenopathy. Visualized thyroid unremarkable.Distal tip of the left supra clavi in Port-A-Cath is at the SVC-RA junction CARDIAC: Heart size is normal. There is no pericardial effusion.Caliber of the thoracic aorta is wit hin normal limits. OSSEOUS: No significant osseous lesions.. ABDOMEN: There is no ascites. There is a silastic stent again noted in the CBD which appears to be in satisfa ctory position. LIVER: There is air within intrahepatic ducts in left hepatic lobe as well as within the gallbladder lumen. In addition, there is now a concerning area of hypodensity in the peripheral aspect of the ri ght hepatic lobe, not previously present, measuring approximately 3.8 x 2.8 cm. Possibly metastatic lesion. Other consideration is for developing infectious process such as abscess, given that there h as been prior instrumentation of the biliary tree.. There is air in the CBD adjacent to the stent. GALLBLADDER/BILIARY: Air seen within the gallbladder fundus. Gallbladder is not overly distended nor edematous and there is no pericholecystic fluid. No calcified gallstones noted. No obvious polyps. CBD contains a silastic stent. Diameter of the CBD is approximately 10 millimeters at the common h epatic duct level, half of this lumen being occupied by the silastic stent and the other half being o ccupied by air-gas. The distal aspect of the stent is in the duodenum just beyond the wall. PANCREAS: Previously described pancreatic head mass is difficult to appreciate. However, there are n ow 2 similar appearing seen in the pancreatic head, proximally 7 millimeters apart, these not evident on the prior study and most probably placed endoscopic Ghislaine.. These are intimately related to the pancreatic duct at this level. Pancreatic duct in the neck, body, and tail is again noted be promine nt, similar to 10/24/2020; perhaps slightly more dilated. Average duct diameter is 6-7 millimeters. There is no peripancreatic fluid collection or peripancreatic streaking. No calcifications within t he pancreatic parenchyma. The uncinate process of the pancreas retains its normal triangular configu ration. There is no new adenopathy in this region. There is no vascular encasement by pathologic ap pearing tissue. The splenic and portal veins are patent. Superior mesenteric vein below the portal vein confluence is also patent. SPLEEN: Spleen is not enlarged. There are no intrasplenic lesions. ADRENALS: There are no significant adrenal masses. KIDNEYS: No calculi nor hydronephrosis. No solid renal masses. No cysts evident. ABDOMINAL AORTA: Abdominal aorta is not enlarged. LYMPH NODES: There is no retroperitoneal nor paraaortic adenopathy. ABDOMINAL WALL: No evidence of significant anterior abdominal wall nor inguinal hernia. GI: There is no evidence of bowel obstruction.Oral contrast has progressed through nondilated small b owel loops into the large bowel. However, there appears to be uniform thickening of the wall of the sigmoid. There is no sigmoid diverticular disease. Similar findings not seen in the remainder of th e colon. Appendix appears unremarkable. PELVIS: LYMPH NODES: There is no intrapelvic nor inguinal adenopathy. GI: No evidence of appendicitis.No evidence of sigmoid diverticulitis. URINARY BLADDER: Uniform thickening of the bladder wall noted. No distinct masses nor diverticuli ev ident REPRODUCTIVE: Prostate gland enlarged lobulated, projecting into bladder. OSSEOUS: No significant osseous lesions. IMPRESSION: 1. Compared to the prior CT scan of 10/24/2020 there is again noted a silastic CBD stent which appear s to be in satisfactory position and associated with some pneumobilia as well as some air now evident within the nondistended and non edematous gallbladder lumen. 2. Air is again noted adjacent to the silastic stent in the minimally prominent CBD. 3. There are presently 2 identical appearing devices in the pancreatic head which are new since the p revious study and most probably placed by endoscopic technique for therapeutic purposes. Dilatation of the pancreatic duct is again noted, however, there are no new peripancreatic fluid collections nor new peripancreatic fat streaking. Also is new regional adenopathy nor vascular encasement by abnorm al tissue. 4. Of concern here is development of a lesion in the right hepatic lobe measuring approximately 3.8 x 2.8 cm, probably metastatic but also cannot rule out developing hepatic abscess, given that there gr s been biliary manipulation. 5. There appears to be uniform circumferential thickening of the sigmoid evident, more so than previ ous, not associated with diverticuli but with more of a colitis-type pattern. 6. Uniformly thickened urinary bladder wall and lobulated enlarged prostate gland are again noted. 7. There is no evidence of metastatic disease chest. RADIATION DOSE DELIVERED: 2,010.48mGy.cm Total DLP DATA REPOSITORY: All CT scans at this facility are submitted to the National Radiology Data Registry (NRDR) Dose Index Registry (DIR) with the [employer] ([employer]). RADIATION OPTIMIZATION: All CT scans at this facility use at least one of these dose optimization te chniques: automated exposure control; mA and/or kV adjustment per patient size (includes targeted exa ms where dose is matched to clinical indication); or iterative reconstruction.
[2021-03-14] MEDS: Omnipaque 350 MG/ML 100 ML BTL IJ (10:48)
[2021-03-14] MEDS: Normal Saline - Diluent 50 ML VIAL IV (10:49)
== END 2021-03-14 01:11 ==
PROVIDERS: PCP Emergency Medicine; Visit Provider Nurse Practitioner Family
DX: C25.0 Malignant neoplasm of head of pancreas (principal); K76.9 Liver disease, unspecified
CPT/HCPCS: 74177; 71260; J3490; Q9967

== ENCOUNTER 2021-03-14 01:21 | Outpatient (RCR) | payer OTHER, SELFPAY ==
[2021-03-14] MEDS: Normal Saline Flush 10 ML SYR IVP (08:11)
[2021-03-14] MEDS: Heparin 500 UNITS/5 ML SYRINGE IV (08:11)
== END 2021-04-03 23:59 | disposition home or self-care (01) ==
LOC: INF 01:21
PROVIDERS: PCP Emergency Medicine; Visit Provider Internal Medicine Hematology & Oncology
DX: Z45.2 Encounter for adjustment and management of vascular access device (principal)
CPT/HCPCS: 96523

== ENCOUNTER 2021-04-20 13:17 | Outpatient (RCR) | payer MEDICARE, SELFPAY ==
[2021-04-20 13:39] LABS: Abs Immature Grans 0.03 10^3/uL (0.0-0.06); Absolute Basophil Count 0.06 10^3/uL (0.0-0.2); Absolute Eosinophil Count 0.13 10^3/uL (0.0-0.7); Absolute Lymphocyte Count 0.79 10^3/uL (1.2-3.4); Absolute Monocyte Count 0.71 10^3/uL (0.1-0.8); Absolute Neutrophil Count 4.84 10^3/uL (1.2-6.7); Basophils % 0.9; HCT 35.2 % (40.0-50.0); Immature Grans % 0.5; MCHC 34.1 % (32.0-36.0); MCV 93.9 fL (80-95); MPV 9.5 fL (8.0-11.0); Monocytes % 10.8; Neutrophils % 73.8; Nucleated RBC 0 %; Platelet Count 246 10^3/uL (130-400); RBC 3.75 10^6/uL (4.36-5.78); RDW 11.8 % (11.8-14.1); RDW-SD 40.7 fL; WBC 6.56 10^3/uL (4.4-10.8)
[2021-04-20] MEDS: Normal Saline Flush 10 ML SYR IVP (13:43)
[2021-04-20] MEDS: Heparin 500 UNITS/5 ML SYRINGE (13:44)
[2021-04-20 13:53] LABS: ALT 41 U/L (16-63); AST 23 U/L (15-37); Albumin 3.1 g/dL (3.4-5.0); Alkaline Phosphatase 165 U/L (46-116); Anion Gap 6.2 mmol/L (3-11); BUN 16 mg/dL (7-18); Bilirubin, Total 0.4 mg/dL (0.2-1.0); CO2 27.8 mmol/L (21.0-32.0); CREATININE 0.9 mg/dL (0.70-1.30); Calcium 8.9 mg/dL (8.5-10.1); Chloride 100 mmol/L (98-107); Glucose 267 mg/dL (74-106); Potassium 4.1 mmol/L (3.5-5.1); Sodium 134 mmol/L (136-145)
[2021-04-23 13:53] LABS: CA 19-9 >70000 U/mL (<35)
== END 2021-05-04 23:59 | disposition home or self-care (01) ==
LOC: INF 13:17
PROVIDERS: PCP Emergency Medicine; Visit Provider Internal Medicine Hematology & Oncology
DX: C25.0 Malignant neoplasm of head of pancreas (principal); Z45.2 Encounter for adjustment and management of vascular access device
CPT/HCPCS: 36591; 80053; 85025; 86301

== ENCOUNTER 2021-05-21 09:35 | Outpatient (RCR) | payer MEDICARE, SELFPAY ==
[2021-05-21] MEDS: Heparin 500 UNITS/5 ML SYRINGE (12:40)
[2021-05-21] MEDS: Normal Saline Flush 10 ML SYR IVP (12:41)
[2021-05-21 12:56] LABS: Abs Immature Grans 0.02 10^3/uL (0.0-0.06); Absolute Basophil Count 0.04 10^3/uL (0.0-0.2); Absolute Eosinophil Count 0.28 10^3/uL (0.0-0.7); Absolute Lymphocyte Count 1.05 10^3/uL (1.2-3.4); Absolute Monocyte Count 0.56 10^3/uL (0.1-0.8); Absolute Neutrophil Count 3.43 10^3/uL (1.2-6.7); Basophils % 0.7; Eosinophils % 5.2; Immature Grans % 0.4; Lymphocytes % 19.5; MCHC 34.1 % (32.0-36.0); MCV 90.9 fL (80-95); MPV 10.2 fL (8.0-11.0); Monocytes % 10.4; Neutrophils % 63.8; Nucleated RBC 0 %; Platelet Count 156 10^3/uL (130-400); RBC 4.51 10^6/uL (4.36-5.78); RDW 12.4 % (11.8-14.1); RDW-SD 41.1 fL; WBC 5.38 10^3/uL (4.4-10.8)
[2021-05-21 13:10] LABS: ALT 147 U/L (16-63); AST 58 U/L (15-37); Albumin 3.6 g/dL (3.4-5.0); Alkaline Phosphatase 294 U/L (46-116); Anion Gap 8.2 mmol/L (3-11); BUN 13 mg/dL (7-18); Bilirubin, Total 0.7 mg/dL (0.2-1.0); CO2 26.8 mmol/L (21.0-32.0); CREATININE 0.8 mg/dL (0.70-1.30); Chloride 98 mmol/L (98-107); Glucose 323 mg/dL (74-106); Potassium 4.3 mmol/L (3.5-5.1); Sodium 133 mmol/L (136-145); Total Protein 7.4 g/dL (6.4-8.2)
[2021-05-23 11:20] LABS: CA 19-9 35 U/mL (<35)
== END 2021-06-04 23:59 | disposition home or self-care (01) ==
LOC: INF 09:35
PROVIDERS: PCP Emergency Medicine; Visit Provider Internal Medicine Hematology & Oncology
DX: C25.0 Malignant neoplasm of head of pancreas (principal); Z45.2 Encounter for adjustment and management of vascular access device
CPT/HCPCS: 36591; 80053; 85025; 86301

== ENCOUNTER 2021-06-25 02:35 | Outpatient (CLI) | payer MEDICARE, SELFPAY | END 2021-06-25 02:36 | disposition home or self-care (01) | LOC: LBO 02:35 | PROVIDERS: PCP Emergency Medicine; Visit Provider Internal Medicine Hematology & Oncology ==

== ENCOUNTER 2021-06-25 14:19 | Outpatient (RCR) | payer MEDICARE, SELFPAY ==
[2021-06-25] MEDS: Normal Saline Flush 10 ML SYR IVP (14:25)
[2021-06-25] MEDS: Heparin 500 UNITS/5 ML SYRINGE (14:25)
[2021-06-25 14:40] LABS: Abs Immature Grans 0.01 10^3/uL (0.0-0.06); Absolute Basophil Count 0.04 10^3/uL (0.0-0.2); Absolute Eosinophil Count 0.22 10^3/uL (0.0-0.7); Absolute Lymphocyte Count 1.17 10^3/uL (1.2-3.4); Absolute Monocyte Count 0.49 10^3/uL (0.1-0.8); Basophils % 0.9; Eosinophils % 5.2; HCT 41.5 % (40.0-50.0); Immature Grans % 0.2; Lymphocytes % 27.7; MCH 29.8 pg (27.0-33.0); MCHC 33.7 % (32.0-36.0); MCV 88.3 fL (80-95); MPV 10.6 fL (8.0-11.0); Monocytes % 11.6; Neutrophils % 54.4; Nucleated RBC 0 %; Platelet Count 151 10^3/uL (130-400); RDW 13.3 % (11.8-14.1); RDW-SD 43.3 fL; WBC 4.22 10^3/uL (4.4-10.8)
[2021-06-25 14:52] LABS: ALT 74 U/L (16-63); AST 33 U/L (15-37); Albumin 3.7 g/dL (3.4-5.0); Alkaline Phosphatase 272 U/L (46-116); Anion Gap 8.3 mmol/L (3-11); BUN 15 mg/dL (7-18); Bilirubin, Total 0.5 mg/dL (0.2-1.0); CO2 26.7 mmol/L (21.0-32.0); CREATININE 0.8 mg/dL (0.70-1.30); Calcium 9.1 mg/dL (8.5-10.1); Chloride 101 mmol/L (98-107); Glucose 269 mg/dL (74-106); Potassium 4.1 mmol/L (3.5-5.1); Sodium 136 mmol/L (136-145); Total Protein 7.4 g/dL (6.4-8.2)
[2021-06-27 10:46] LABS: CA 19-9 30 U/mL (<35)
== END 2021-07-02 23:59 | disposition home or self-care (01) ==
LOC: INF 14:19
PROVIDERS: PCP Emergency Medicine; Visit Provider Internal Medicine Hematology & Oncology
DX: C25.0 Malignant neoplasm of head of pancreas (principal); Z45.2 Encounter for adjustment and management of vascular access device
CPT/HCPCS: 36591; 80053; 85025; 86301